=== PATIENT | female | born 1960 | race Caucasian/White ===

== ENCOUNTER 2016-09-01 16:10 | Emergency (ER) | payer SELFPAY | END 2016-09-01 17:15 | disposition home or self-care (01) | LOC: FER 16:10 | DX: S68.121A Partial traumatic metacarpophalangeal amputation of left index finger, initial encounter (principal); I10 Essential (primary) hypertension; Z79.899 Other long term (current) drug therapy; W27.8XXA Contact with other nonpowered hand tool, initial encounter; Y92.009 Unspecified place in unspecified non-institutional (private) residence as the place of occurrence of the external cause ==

== ENCOUNTER 2021-02-11 16:07 | Emergency (ER) | payer OTHER ==
[2021-02-11] MEDS ORDERED: CYCLOBENZAPRINE10 MG PO (19:55)
[2021-02-11] MEDS ORDERED: NAPROXEN500 MG PO (19:55)
== END 2021-02-11 20:25 | disposition home or self-care (01) ==
LOC: FER 16:07
DX: S39.012A Strain of muscle, fascia and tendon of lower back, initial encounter (principal); I10 Essential (primary) hypertension; X58.XXXA Exposure to other specified factors, initial encounter
CPT/HCPCS: 72100; J1885